=== PATIENT | female | born 1955 | race Caucasian/White ===

== ENCOUNTER → 2021-09-18 | Outpatient (CLI) | payer MEDICARE, MEDICAID ==
[~2021-09-18] MED LIST: ALBU8HFA4 IH; AMIT-166 PO; AUD NEB; BENZ100C68 PO; BUDE10.2 IH; CYAN-35 PO; FOLI-130 PO; FURO40TA5 PO; HYDR-4455 PO; HYDR200T83 PO; INSNOV SQ; INSU10VI3 SQ; INSU300I3 SQ; INSULIN GLARGINE SQ; LISI40TA9 PO; METF-444 PO; OMEP20 PO; POTA-10 PO; PRED5TAB2 PO; TIOT4MIS2 IH
== END | disposition home or self-care (01) ==
LOC: SRCNTR 11:35
PROVIDERS: ATTEND Internal Medicine Critical Care Medicine
DX: J44.1 Chronic obstructive pulmonary disease with (acute) exacerbation (principal); E04.1 Nontoxic single thyroid nodule; E11.9 Type 2 diabetes mellitus without complications; I10 Essential (primary) hypertension; M43.16 Spondylolisthesis, lumbar region; I26.99 Other pulmonary embolism without acute cor pulmonale; M48.061 Spinal stenosis, lumbar region without neurogenic claudication; F15.20 Other stimulant dependence, uncomplicated; F34.89 Other specified persistent mood disorders
CPT/HCPCS: Q3014

== ENCOUNTER → 2022-01-15 | Outpatient (CLI) | payer MEDICARE, MEDICAID ==
[2022-01-15 12:41] LABS: ALBUMIN 1.9 g/dL (3.4-5.0); BILIRUBIN,TOTAL 0.2 mg/dL (0.1-1.0); CALCIUM, TOTAL 8.7 mg/dL (8.8-10.5); CREATININE 1.14 mg/dL (0.60-1.30); TOTAL PROTEIN, SERUM 6.5 g/dL (6.4-8.2)
[2022-01-15 13:36] LABS: POTASSIUM 2.7 mmol/L (3.5-5.1)
== END | disposition home or self-care (01) ==
LOC: LABPV 11:12
PROVIDERS: ATTEND Internal Medicine Critical Care Medicine
DX: R63.4 Abnormal weight loss (principal)
CPT/HCPCS: 80053

== ENCOUNTER → 2022-01-17 | Outpatient (CLI) | payer MEDICARE, MEDICAID ==
[2022-01-17 12:32] LABS: BASOPHILS % (AUTO) 0.4 % (0.0-2.0); EOSINOPHILS % (AUTO) 1.4 % (1.0-6.0); HEMOGLOBIN 10.7 g/dL (12.0-16.0); LYMPHOCYTES # (AUTO) 3.8 K/uL (1.0-4.8); LYMPHOCYTES % (AUTO) 18.7 % (22.0-44.0); MEAN CORPUSCULAR HGB CONC 32.4 G/dL (31.0-37.0); MEAN CORPUSCULAR VOLUME 89 fL (80-100); MONOCYTES # (AUTO) 1.3 K/uL (0.1-1.0); MONOCYTES % (AUTO) 6.7 % (2.0-9.0); NEUTROPHILS # (AUTO) 14.7 K/uL (1.8-7.7); NEUTROPHILS % (AUTO) 72.8 % (40.0-70.0); PLATELET COUNT (AUTO) 484 K/uL (150-450); RED BLOOD CELL COUNT(AUTO) 3.69 MIL/uL (4.00-5.20); RED CELL DISTRIBUTION WIDTH 19.7 % (11.5-14.5)
[2022-01-17 12:49] LABS: BILIRUBIN,TOTAL 0.2 mg/dL (0.1-1.0); CALCIUM, TOTAL 9.1 mg/dL (8.8-10.5); CREATININE 1.02 mg/dL (0.60-1.30); POTASSIUM 3.8 mmol/L (3.5-5.1); TOTAL PROTEIN, SERUM 6.9 g/dL (6.4-8.2)
== END | disposition home or self-care (01) ==
LOC: LABPV 11:40
PROVIDERS: ATTEND Internal Medicine Critical Care Medicine
DX: Z01.89 Encounter for other specified special examinations (principal); R63.4 Abnormal weight loss
CPT/HCPCS: 80053; 85025